=== PATIENT | female | born 1980 | race Caucasian/White ===

== ENCOUNTER 2016-07-09 20:21 | Emergency (ER) | payer OTHER ==
[2016-07-09 20:55] VITALS: BP 115/85; PULSE 72; RESP 12; TEMP 98.6; O2SAT 98
[2016-07-09 21:01] LABS: COLOR YELLOW; LEUKOCYTE ESTERASE,URINE 2+ (NEGATIVE); NITRITE,URINE POSITIVE (NEGATIVE)
--- NOTE | 2016-07-09 21:05 | UCPHY ---
H & P Time Seen by Provider: 07/09/16 20:43 Patient Type: Established HPI/ROS: HPI Urinary complaints. 35-year-old female by private vehicle. She reports onset of burning with urination, cloudiness of her urine, suprapubic discomfort and increased frequency since this morning. She has had urinary tract infections in the past. No back pain. No fever. No other complaints. ROS: Constitutional: No fever, no chills. No weakness. Gastrointestinal: No abdominal pain, no vomiting, no diarrhea. Genitourinary: No hematuria. As above. Musculoskeletal: No back pain. Skin: No rashes. Neurological: No headache. Past medical history: Urinary tract infections. Otherwise no significant past medical history. Social history: Here by herself. Nonsmoker. Physical Exam: General Appearance: Alert, no distress. This patient is responding to questions appropriately and in full sentences. This patient appears well- hydrated and well-nourished. Eyes: Pupils equal and round no pallor or injection. No lid edema, erythema or injection. Gastrointestinal: Abdomen is soft and nontender, no masses, bowel sounds normal. No focal tenderness at McBurney's point. No Ochoa sign. Neurological: Motor sensory function is grossly intact. Cranial nerves are normal. Gait is normal. Skin: Warm and dry, no rashes. Musculoskeletal: No CVA tenderness bilaterally. Extremities are symmetrical. All joints range without pain or impingement. Psychiatric: No agitation. No depression. Database: EKG: Imaging: Procedures: Emergency department course: 9:20 p.m., results of urinalysis discussed with the patient. Medication allergies reviewed. Plan will be to prescribe her Keflex, 500 mg, four times daily for the next 5 days for treatment of urinary tract infection. Will also prescribe her Pyridium. She was given her 1st dose of these medications in the emergency department tonight. She feels comfortable going home and I feel she is safe for discharge. Her vital signs have been reviewed. Follow-up and return to emergency department precautions discussed. All of her questions were answered. She was discharged in good condition. Differential Diagnosis: The differential diagnosis on this patient includes but is not limited to urinary tract infection. Pyelonephritis, ureterolithiasis, ectopic , ovarian cyst, ovarian torsion, STD unlikely. This represents a partial list of diagnoses considered. These considerations are based on history, physical exam , past history, reassessment and diagnostic testing. Smoking Status: Never smoked Constitutional: Initial Vital Signs Temperature (C) 37 C 07/09/16 20:53 Heart Rate 72 07/09/16 20:53 Respiratory Rate 12 07/09/16 20:53 Blood Pressure 115/85 H 07/09/16 20:53 O2 Sat (%) 98 07/09/16 20:53 O2 Delivery Mode Room Air Allergies/Adverse Reactions: amoxicillin Allergy (Verified 07/09/16 20:52) codeine [Codeine] Allergy (Verified 07/09/16 20:52) Home Medications: Medication Instructions Recorded Bactrim DS 07/09/16 Cephalexin [Keflex (*)] 500 mg PO Q6 5 Days 07/09/16 Phenazopyridine HCl [Pyridium] 200 mg PO TID #10 tab 07/09/16 Medical Decision Making - Data Points Laboratory Results: 07/09/16 07/09/16 20:45 20:45 Urine Color Pending Urine Appearance Pending Urine pH Pending Ur Specific [place] Pending Urine Protein Pending Urine Ketones Pending Urine Blood Pending Urine Nitrate Pending Urine Bilirubin Pending Urine Urobilinogen Pending Ur Leukocyte Esterase Pending Urine RBC Pending Urine WBC Pending Ur Epithelial Cells Pending Ur Culture Indicated? Pending Urine Glucose Pending Urine Test Pending Departure - Departure Disposition: Home, Routine, Self-Care Clinical Impression: Urinary tract infection Condition: Good Instructions: Urinary Tract Infection in Women (ED) Additional Instructions: Read and follow provided instructions. Follow-up with your primary care physician in 1-2 days for re-evaluation as needed. Take antibiotic as prescribed through entire course of treatment. Return to the emergency department for worsening symptoms, fever, abdominal pain , back pain, vomiting or other serious concerns. Referrals: NONE *PRIMARY CARE P,. [Primary Care Provider] - As per Instructions Prescriptions: Cephalexin [Keflex (*)] 500 mg PO Q6 5 Days Phenazopyridine HCl [Pyridium] 200 mg PO TID #10 tab - PQRS PQRS Measurement: Not applicable.
[2016-07-09] MEDS ORDERED: CEPHALEXIN 500MG PREPACK#4 BTL TAKEHOME ONE (21:08)
[2016-07-09] MEDS ORDERED: PHENAZOPYRIDINE HCL 200 MG TAB PO ONE (21:08)
[2016-07-09 21:21] LABS: WBC,URINE 50-182 /hpf (0-3)
[2016-07-09 21:22] LABS: BACTERIA 4+ /hpf (NONE SEEN)
== END 2016-07-09 21:30 | disposition home or self-care (01) ==
LOC: CED 20:21
DX: N39.0 Urinary tract infection, site not specified (principal)
CPT/HCPCS: 81003-PO; 81015-PO; 81025-PO; G0463-PO